=== PATIENT | female | born 1980 | race Caucasian/White ===

== ENCOUNTER 2019-05-28 13:14 | Observation (INO) | payer BC, SELFPAY ==
[2016-03-03 07:36] VITALS: BMI 45.4
[2019-05-28 13:33] VITALS: BP 123/65; PULSE 53; RESP 16; TEMP 36.6; O2SAT 97
[2019-05-28 13:37] VITALS: BMI 36.0
[2019-05-28 13:39] VITALS: BMI 36.0
[2019-05-28] MEDS: Lactated Ringers 1,000 ML 125 ML IV ×2 (14:01→23:25)
[2019-05-28] MEDS: HYDROmorphone 0.5 MG/0.5 ML SYRINGE IV ×4 (14:03→23:22)
[2019-05-28] MEDS: Ondansetron 4 MG/2 ML Vial IV (14:03)
--- NOTE | 2019-05-28 19:56 | PCM.HP.BLA ---
History and Physical Date of Admission: 05/28/19 Janene Best 1980 ? ?? CHIEF COMPLAINT: ABDOMINAL PAIN ? HPI: The patient is a 38 year old female presents with abdominal pain. She was evaluated last night at [facility]. Abdominal CT scan - gallbladder wall thickening and pericholecystic stranding, large 2 cm stone in region of gallbladder neck, distended gallbladder, penetration of the myometrium of the uterus with IUD - possibly outside Normal LFTs and normal WBC. Afebrile. Now presents for follow up in the office for consideration of surgery. She presents to the office in severe pain, bent over the examination table, with nausea and holding an emesis bag. She states that pain began suddenly on Saturday afternoon. Describes severe sharp epigastric abdominal pain that radiates to the back and also has nausea and emesis since. Can't eat, because of pain. Notes low grade fevers, but has chills. ?? PAST MEDICAL HISTORY ? Known health problems: none ? ?? PAST SURGICAL HISTORY ? [place] teeth surgery ? ? ? PAST INJURIES Denies head injuries, had left elbow fracture, had right wrist fracture, had left foot and ankle fracture ?? Current Outpatient Medications: oxyCODONE-acetaminophen (PERCOCET) 5-325 mg tablet Take 1 tablet by mouth every 6 hours as needed for Pain for up to 3 days. mv,Ca,min/iron/FA/guarana/caff (ONE-A-DAY WOMEN'S ACTIVE ORAL) Take by mouth. ?? ALLERGIES: Patient has no known allergies. ? PERSONAL HISTORY: Social History Socioeconomic History Marital status: Tobacco Use Smoking status: Former Smoker Years: 10.00 Types: Cigarettes Quit date: 06/20/2013 Years since quittin.9 Alcohol use: No Drug use: No FAMILY HISTORY ? Hypertension Mother ? ? Lipids Father ? ? ? REVIEW OF SYSTEMS: General - notes low grade temperature elevation, has chills, can't eat Cardiovascular - denies chest pain, denies history of AL Pulmonary - denies shortness of breath, denies hemoptysis Gastrointestinal - see HPI Neurological - denies seizures, denies chronic headaches, denies chronic numbness/weakness of extremities Genitourinary - denies burning with urination, denies blood in urine Hematological - denies spontaneous/prolonged bleeding Skin - denies nonhealing skin wounds Musculoskeletal - denies chronic joint/back pain Endocrine - denies diabetes Psychological ? denies hallucinations ? PHYSICAL EXAMINATION: General: The patient is 38 year old female, well nourished, well hydrated in apparent discomfort. The patient is oriented to time, place, and person. VITALS: Blood pressure 112/80, pulse 66, temperature 36.4 ?C (97.5 ?F), height 172.7 cm (5' 8), weight 107.8 kg (237 lb 9.6 oz), SpO2 99 %. Body mass index is 36.13 kg/m?. Head ? Normocephalic. EOM intact with sclera clear and no icterus noted. Mouth with mucus membranes moist. Neck - supple with no jugular venous distention noted. Trachea is midline. Lungs ? clear to auscultation. Normal breath sounds. No rales/rhonchi/wheezing noted. No labored breathing noted, such as retractions. Heart ? normal S1 and S2 auscultated. No rubs/clicks/murmurs noted. Regular rate. Abdomen ? soft but tender in right upper quadrant and epigastrium with Lewis's signs, normal bowel sounds, difficult to determine if any masses or organomegaly due to body habitus. Extremities ? no calf tenderness noted. No pitting edema noted. Varicosities. Skin ? no rashes noted. Normal skin integrity. Neurological ? gait normal, no focal deficits noted noted. Psych ? calm and appropriate LABORATORY VALUES: As Noted RADIOLOGIC STUDIES: As Noted ? IMPRESSION: acute cholecystitis - by clinical examination ? PLAN: I have discussed the above with the patient. She presents with extreme pain and nausea and emesis. I have recommended that she be admitted to the hospital for IV hydration and pain and nausea control. I have scheduled surgery for tomorrow. I have explained the procedure to the patient. I have counseled the patient as to the risks of the procedure, including but not limited to: infection, bleeding, injury to any blood vessels/nerves, scar tissue, injury to any intraabdominal organs, injury to bowel/bladder, injury to the common bile duct/biliary tree, bile leakage, intraabdominal abscess/bleeding, hernias at incisional sites, wound infections, complications of anesthesia, etc. ? the patient understands. The patient wishes to proceed. I have answered all questions to the patient?s satisfaction and the patient has no further questions. . Diagnoses: (K80.00) Calculus of gallbladder with acute cholecystitis without obstruction (primary encounter diagnosis) (R10.13) Epigastric pain (E66.09, Z68.36) Class 2 obesity due to excess calories without serious comorbidity with body mass index (BMI) of 36.0 to 36.9 in adult Return to Clinic: The patient is instructed to follow-up with me after the procedure. ? Kindra Magallanes MD
[2019-05-28 19:59] VITALS: BP 109/52; PULSE 49; RESP 16; TEMP 37; O2SAT 100
[2019-05-28] MEDS: 0.9% NaCl Peripheral Flush Adult/Peds IV ×4 (20:02→23:22)
[2019-05-28] MEDS: proMETHazine 25 MG/ML Syringe 12.5 MG IV (21:34)
[2019-05-28] MEDS: HYDROcodone Bitartrate/Apap 5/325 Tablet PO (21:34)
[2019-05-29] VITALS (10 sets, daily range): BP systolic 100–131; BP diastolic 46–92; PULSE 57–81; RESP 14–18; TEMP 36.7–37.7; O2SAT 93–99; BMI 36.0
--- NOTE | 2019-05-29 | GALL_PTH ---
PATIENT: LUIS MADDEN LOC: MS3 U#:[id number] AGE/SX: 38/F ROOM: HI301 RE05/28/[address]: Dr. Kindra Magallanes MD : 1980 BED: 1 DIS: 05/29/2019 SPEC #: [id number] RECD: 05/29/19 16:40 STATUS: SUZI REQ #: [id number] MIGUEL: 05/29/19 00:[address]: Kindra Magallanes DEPT: SURGICAL PATHOLOGY RECD BY: Rafa Spangler ENTERED: 06/01/19 10:51 SP TYPE: VICKI HO DR: No Primary Care Phys Tissues: Gallbladder, NOS Procedures: Surgery Specimen Level III HEADER OPERATION: Laparoscopic cholecystectomy PRE-OP DIAGNOSIS: Calculus of gallbladder with acute cholecystitis without obstruction TISSUE SUBMITTED: Gallbladder MICROSCOPIC DIAGNOSIS Gallbladder, cholecystectomy: Acute and chronic cholecystitis and cholelithiasis. Benign pericystic lymph node. AM:jalil 06/02/19 MICROSCOPIC DESCRIPTION Slides are reviewed. GROSS DESCRIPTION Received is one container labeled with the patient's name and designated gallbladder. The specimen consists of a previously, partially opened gallbladder measuring 12 cm in length and 5 cm in diameter. The serosal surface is focally congested and hemorrhagic. The external surface is pink-becker, smooth and glistening for the most part. Focally it is granular, hemorrhagic and contains cautery artifact. The gallbladder contains a small amount of hemorrhagic bile and one ovoid greenish-brown stone close to the cystic duct measuring 3 cm in greatest dimension. The mucosa is congested, hemorrhagic and ulcerated. The gallbladder wall measures up to 0.7 cm in thickness. Manager Data Warehousing sections from the gallbladder and the cystic duct are submitted in one cassette. / SJ:jalil 06/01/19 TC:2 CPT: 70910
[2019-05-29] MEDS: 0.9% NaCl Peripheral Flush Adult/Peds IV (02:44)
[2019-05-29] MEDS: HYDROmorphone 0.5 MG/0.5 ML SYRINGE IV ×3 (02:45→12:30)
--- NOTE | 2019-05-29 06:00 | EKG12_ITS ---
Test Reason : PRE-OP Blood Pressure : / mmHG Vent. Rate : 064 BPM Atrial Rate : 064 BPM P-R Int : 116 ms QRS Dur : 088 ms QT Int : 440 ms P-R-T Axes : 031 038 031 degrees QTc Int : 453 ms Normal sinus rhythm with sinus arrhythmia Normal ECG Confirmed by ANGELINA SANCHEZ, DOMINGA ([id number]), newspaper managing editor BREA MACIAS ([id number]) on 06/02/2019 11:58:41 AM Referred By: Kindra Magallanes Confirmed By:DOMINGA ALFARO MD
[2019-05-29] MEDS: Lactated Ringers 1,000 ML 125 ML IV ×2 (07:52→17:25)
--- NOTE | 2019-05-29 12:57 | NURSING ---
Report given to RN in AC. Pt. is off the unit at this time.
--- NOTE | 2019-05-29 12:58 | PCA ---
pt off floor
--- NOTE | 2019-05-29 14:17 | DCINST_ITS ---
Discharge Diet: No Restrictions Discharge Activity: Return to Normal Activity - drink plenty of fluids like water - keep well hydrated avoid carbonated beverages for a couple of days, May not drive while taking narcotic pain medications. Lifting Restrictions: no lifting/pushing/pulling greater than 20 pounds for two weeks Call your doctor if your incision/area has: Continuous Slow Oozing, Foul Smelling Discharge Call your doctor if you observe: Fever of 101 or Higher Additional Dressing/Incision Instructions:: Leave dressings in place. May get wet in shower. Do not soak - no tub baths/swimming Additional Instructions: Recommended pain medication regimen - may take 650 mg acetaminophen, then in three hours take 600 mg ibuprofen, then in three hours take 650 mg acetaminophen, then in three hours take 600 mg ibuprofen, and so on, for about 1-2 days. Take narcotic pain medication for breakthrough pain and at night as per needed Allergies/Adverse Reactions: Allergies No Known Allergies Allergy (Verified 05/28/19 09:10) Medications to take at Discharge Hydrocodone Bitart/Apap 5-325 [[place] 5MG-325MG] 1 tab PO Q8H PRN PRN 5 Days #15 tab 05/29/19 The following prescriptions were given: Hydrocodone Bitart/Apap 5-325 [[place] 5MG-325MG] 1 tab PO Q8H PRN PRN 5 Days #15 tab PRN Reason: Pain Prescription Printed Primary Care Physician: Care Physician,No Primary [Primary Care Provider] - Test Results: Test results from this visit will be discussed in further detail at your follow- up appointment, if applicable. Please Follow Up With: Kindra Magallanes MD - call When: to be seen in 7-10 days, please call for date and time, thank you
[2019-05-29 14:19] LABS: Internal QC Validated? YES +Cl - CLEAR BKGD; Pregnancy, Urine Negative Negative
[2019-05-29] MEDS: Bupiv/Epi 0.25% 30 ML Vial (14:32)
--- NOTE | 2019-05-29 15:43 | PCA ---
pt off floor
--- NOTE | 2019-05-29 16:03 | PCM.OPRPT ---
Report of Operation Date of Procedure: 05/29/19 Pre-Operative Diagnosis: acute cholecystitis, cholelithiasis Post-Operative Diagnosis: acute cholecystitis, cholelithiasis with obstruction Surgery/Procedure Performed:: laparoscopic cholecystectomy Description of Surgical Findings:: cholelithiasis with acute cholecystitis with obstruction (hydrops) Type of Anesthesia:: General Anesthesiologist: Chauncey Thomas Specimen's removed: gallbladder and contents Drains: none Estimated Blood Loss (mL): < 10 ml Fluids Replaced: 2000 ml RL Description of Procedure: After informed consent was given, the patient was brought to the Operating Room. Appropriate time out protocol was followed. The patient was then placed in the supine position. The patient was then placed under general endotracheal anesthesia. The abdomen was then prepped with a sterile surgical skin preparation and sterile surgical drapes were placed. The superior umbilical skin fold was grasped with penetrating clamps and the skin and subcutaneous tissues were infiltrated with 0.25% marcaine with epinephrine. A skin incision was then made with a 15 blade scalpel. The anterior abdominal wall was elevated and a Veress needle was carefully inserted into the intraabdominal cavity. It was checked to be in the proper position with a normal saline drop test. A CO2 pneumoperitoneum was then created. Once this was achieved, then the Veress needle was removed and an 11mm trocar was placed in its stead. A 10mm laparoscope was then inserted into the trocar and careful attention was directed to the intraabdominal contents. There was no evidence of injury to any intraabdominal organs from insertion of the Veress needle or the trocar. Under direct visualization, a 5mm subxiphoid trocar and two lateral 5mm right subcostal trocars were placed. The skin and subcutaneous tissues at these sites were infiltrated with 0.25% marcaine with epinephrine prior to placement of these trocars. Attention was then directed to the right upper quadrant of the abdomen. The gallbladder was grossly distended and the wall was edematous. There were omental adhesions to the free surface of the gallbladder. A needle aspirated was directed into the gallbladder to drain its contents in order to be able to grasper the gallbladder for proper dissection. The aspirated contents were clear green fluid, this is consistent with hydrops. Graspers were placed in the lateral trocars to grasp the distal aspect of the gallbladder and direct it cephalad and to grasp the gallbladder at Gallardo?s pouch and direct it laterally. Dissection then began to remove the omental adhesions from the surface of the gallbladder. Any bleeding was controlled with electrocoagulation. Dissection then began in the area of the triangle of Calot to identify the cystic duct. Of not, the tissues surrounding the gallbladder were edematous and friable and inflamed. Blunt dissection was done with the water web applications administrator. The cystic duct was identified. The neck of the gallbladder was identified and blunt dissection continued to dissect out a segment of the cystic duct. A clip was then placed on the neck of the gallbladder. Two clips were placed proximally and the duct was then transected. The cystic artery was bluntly isolated out. Two clips were placed proximally and one clip distally and then it was transected between the proximal and distal clips. The gallbladder was then from the liver bed using blunt dissection and electrocautery. This took some time due to the nature of the cholecystitis. The gallbladder, once from the liver bed was then placed in an Endobag and brought out via the periumbilical trocar site. It was then forwarded to pathology for analysis. The area of dissection was carefully examined, any bleeding was controlled with electrocoagulation. The area was vigorously irrigated with normal saline and all irrigation was aspirated out. There was no evidence of bile leakage or bleeding. The cystic duct stump and cystic artery stump had their clips intact and there was no evidence of bile leakage or bleeding. The remainder of the abdomen was grossly normal. The CO2 was released and all trocars removed intact. The periumbilical fascia was approximated with a [id number] 0 vicryl suture. All skin incision were closed with 4-0 monocryl in a subdermal fashion. Cavilol and Steristrips were used to reinforce the skin closure. Sterile dressings were applied to all wounds. The patient was extubated and brought to the Recovery Room in stable condition. - Complications none noted - Admit VTE Documentation VTE Present on Admission: Yes VTE Mechan Device Prophylaxis: SCD's
[2019-05-29] MEDS: HYDROcodone Bitartrate/Apap 5/325 Tablet PO (18:57)
== END 2019-05-29 20:05 | disposition home or self-care (01) ==
PROVIDERS: Anesthesiology; Admitting Provider Surgery; Referring Provider Surgery; Visit Provider Surgery
PROC: (CPT 47610; principal; 2019-05-29 13:25)
DX: K80.13 Calculus of gallbladder with acute and chronic cholecystitis with obstruction (principal); K82.1 Hydrops of gallbladder; Z87.891 Personal history of nicotine dependence; E66.9 Obesity, unspecified; Z68.36 Body mass index [BMI] 36.0-36.9, adult; Z71.3 Dietary counseling and surveillance
CPT/HCPCS: 00790; 47562; 81025; 88304; 93005; 96361; 96365; 96366; 96375; 96376; 99218; J7120; A4216; G0378; G0379; J1610; J2405

== ENCOUNTER → 2019-11-11 16:33 | Outpatient (CLI) | payer BC, SELFPAY ==
[2019-05-29 12:33] VITALS: BMI 36.0
[2019-11-15 11:39] LABS: HPV Reflexed? NOT INDICATED
== END ==
PROVIDERS: Referring Provider Obstetrics & Gynecology; Visit Provider Obstetrics & Gynecology
DX: Z12.4 Encounter for screening for malignant neoplasm of cervix (principal)
CPT/HCPCS: 88175; G0145

== ENCOUNTER → 2021-02-03 09:28 | Outpatient (CLI) | payer BC, SELFPAY ==
[2019-05-29 12:33] VITALS: BMI 36.0
--- NOTE | 2021-02-03 09:37 | US_ITS ---
STUDY: RENAL ULTRASOUND - COMPLETE REASON FOR EXAM: Female, 40 years old. CHRONIC KIDNEY DISEASE STAGE 3A TECHNIQUE: Ultrasound evaluation of the kidneys was performed with real-time and static herrera-scale imaging. COMPARISON: None. FINDINGS: RIGHT KIDNEY: Normal location of the right kidney, which is normal in size. The right kidney measures 11.4 cm x 4.6 cm x 4.2 cm. There is a normal cortex of the right kidney. The renal cortex measures 1.2 cm. There is no right renal mass or cyst. There are no right renal calculi. There is no right hydronephrosis. DISTAL RIGHT URETER: There is non-visualization of the distal right ureter. There is no demonstrated right ureterovesical junction calculus. There is a visualized right ureteral jet. LEFT KIDNEY: Normal location of the left kidney, which is normal in size. The left kidney measures 12.1 cm x 5 cm x 5 cm. There is a normal cortex of the left kidney. The renal cortex measures 1.6 cm. There is no left renal mass or cyst. There are no left renal calculi. There is no left hydronephrosis. DISTAL LEFT URETER: There is non-visualization of the distal left ureter. There is no demonstrated left ureterovesical junction calculus. There is a visualized left ureteral jet. BLADDER: The distended urinary bladder has a volume of 249 ml. There is a normal wall thickness of the distended urinary bladder. There is no demonstrated mass within the urinary bladder. There are no demonstrated bladder calculi. Incidental note is made of a splenomegaly. The spleen measures 13.6 cm x 6.2cm x 4.6 cm. US/Kidney and Bladder IMPRESSION: Normal ultrasound of the kidneys and urinary bladder. Incidental note is made of splenomegaly. Electronically Signed: Tariq Hurst MD at 11:17 EST , Service support ,
== END ==
PROVIDERS: PCP Nurse Practitioner Adult Health; Referring Provider Internal Medicine Nephrology; Visit Provider Internal Medicine Nephrology
DX: N18.31 Chronic kidney disease, stage 3a (principal)
CPT/HCPCS: 76770

== ENCOUNTER → 2021-03-27 16:59 | Outpatient (CLI) | payer BC, SELFPAY ==
[2019-05-29 12:33] VITALS: BMI 36.0
[2021-03-27 17:06] LABS: Mucous, Urine 0 SEEN /hpf (<or=2+)
[2021-03-27 17:37] LABS: Color, Urine Yellow (Yellow); Glucose, Dipstick Normal (Normal); Ketone-Dipstick 15 mg/dl (Negative); Leukocyte Esterase-Dipstick 100 /ul (Negative); Nitrite-Dipstick Negative (Negative); Occult Blood-Urine 50 /ul (Negative); Protein-Dipstick Negative (Negative); Urine Bilirubin Dipstick Negative (Negative); Urine Clarity Clear (Clear); Urine Urobilinogen Normal (Normal)
[2021-03-27 17:39] LABS: Hematocrit 44.1 % (37-47); Hemoglobin 14.3 g/dL (12.0-15.0); Mean Corp Hgb Conc 32.4 g/dL (32-36); Mean Corpuscular Hgb 30.2 pg (27.0-32.0); Mean Corpuscular Volume 93.2 fL (81-99); Mean Platelet Vol. 10.3 fl (6.2-12.0); Platelet Count 253 K/mm3 (150-450); RBC Distribution Width CV 12.3 % (11.6-14.6); RBC Distribution Width SD 42.6 fl (35.1-43.9); Red Blood Count 4.73 M/mm3 (4.2-5.4); White Blood Count 7.7 K/mm3 (4.4-11.0)
[2021-03-27 17:44] LABS: Bacteria RARE /hpf (None Seen); Red Blood Cells-Urine 0-5 SEEN /hpf (0-5); Squamous Epithelial Cells - UA 0-5 SEEN /hpf (5-10); White Blood Cells 5-10 SEEN /hpf (0-5)
[2021-03-27 17:58] LABS: Microalbumin,Random Urine 14.8 mg/L (NO RANGE EST.); Protein, Urine (Random) 10.6 mg/dL (<11.9); Protein:Creat Ratio 58 mg/g CRE (0-200)
[2021-03-27 17:59] LABS: Albumin, Serum 4.1 g/dL (3.2-5.0); BUN 12 mg/dL (7-18); BUN/Creat Ratio 12.6 RATIO (10-20); Calcium,Total 9.1 mg/dL (8.5-10.1); Chloride 106 mmol/L (98-107); Creatinine, Serum 0.96 mg/dL (0.55-1.02); EST Glomerular Filtration Rate 69 mL/min (>60); Est Glom Filt Rate - Afr Amer 83 mL/min (>60); Glucose 93 mg/dL (74-106); Phosphorus 3.5 mg/dL (2.5-4.9); Potassium 3.9 mmol/L (3.5-5.1); Sodium Level 139 mmol/L (136-145)
[2021-03-28 10:38] LABS: PTHIN 53.8 pg/mL (18.4-80.1)
== END ==
PROVIDERS: PCP Nurse Practitioner Adult Health; Referring Provider Internal Medicine Nephrology; Visit Provider Internal Medicine Nephrology
DX: N18.31 Chronic kidney disease, stage 3a (principal)
CPT/HCPCS: 36415; 80069; 81001; 82043; 82306; 82570; 83970; 84156; 85027

== ENCOUNTER → 2021-04-18 16:28 | Outpatient (CLI) | payer BC, SELFPAY ==
[2019-05-29 12:33] VITALS: BMI 36.0
[2021-04-18 17:47] LABS: CRP 4.61 mg/L (0.0-3.0)
[2021-04-20 16:09] LABS: Endomysial Antibody IgA Negative (Negative)
[2021-04-20 16:52] LABS: Immunoglobulin A 128 mg/dL (87-352); t-Transglutaminase IgA <2 U/mL (0-3)
== END ==
PROVIDERS: PCP Nurse Practitioner Adult Health; Referring Provider Internal Medicine Gastroenterology; Visit Provider Internal Medicine Gastroenterology
DX: R19.7 Diarrhea, unspecified (principal)
CPT/HCPCS: 36415; 82784; 83516; 86140; 86255

== ENCOUNTER → 2022-07-25 | Outpatient (CLI) | payer BC, SELFPAY ==
[2022-08-02 15:12] LABS: HPV APTIMA, High Risk Negative (Negative)
== END | disposition home or self-care (01) ==
LOC: LABSPEC 15:48
PROVIDERS: PCP Nurse Practitioner Adult Health; Visit Provider Obstetrics & Gynecology
DX: Z01.419 Encounter for gynecological examination (general) (routine) without abnormal findings (principal)
CPT/HCPCS: 87624; 88175; G0145

== ENCOUNTER → 2022-07-27 | Outpatient (CLI) | payer BC, SELFPAY ==
--- NOTE | 2022-07-27 12:50 | BI_ITS ---
MAMMOGRAPHY - BILATERAL SCREENING REASON FOR EXAM: Female, 42 years old. Routine annual screening examination. PERTINENT HISTORY: Non-contributory. TECHNIQUE: Digital bilateral breast justice (3D mammographic acquisition) in the CC and MLO projections. 2-D mediolateral oblique (MLO) and craniocaudad (CC) views of both breasts were obtained. CAD: Full Field Digital Mammography with Computer Added Detection was performed. COMPARISON: None. Baseline examination. FINDINGS: Breast Composition: The breasts are heterogeneously dense, which may obscure small masses. There are no dominant masses or suspicious calcifications. Small bilateral benign-appearing axillary lymph nodes. No other significant abnormalities are identified. There has been no significant change since the prior study. BI/SCRN MAMM (CAD)W/JUSTICE BILAT IMPRESSION: Stable bilateral screening mammogram. Yearly follow-up mammogram recommended. (A) ASSESSMENT CATEGORY: BIRADS Category 2: Benign. A letter regarding these results will be sent to the patient by the facility within 30 days. Approximately 10% of breast cancers are not detected by mammography. A normal mammogram should not delay biopsy of a clinically suspicious abnormality. [id number] Electronically Signed: Tariq Hurst MD at 14:02 EDT ,
== END | disposition home or self-care (01) ==
LOC: OPBI 12:48
PROVIDERS: PCP Nurse Practitioner Adult Health; Referring Provider Obstetrics & Gynecology; Visit Provider Obstetrics & Gynecology
DX: Z12.31 Encounter for screening mammogram for malignant neoplasm of breast (principal)
CPT/HCPCS: 77063; 77067